=== PATIENT | female | born 1930 | race Caucasian/White ===

== ENCOUNTER 2017-09-06 12:51 | Inpatient (IN) | payer OTHER, MEDICARE ==
[2017-09-06 13:00] VITALS: BMI 19.3
[2017-09-06] MEDS ORDERED: morphine CARPU-JECT 2 MG/1 ML DISP.SYRIN IVPUSH ONE ×2 (14:39→21:44)
--- NOTE | 2017-09-06 14:39 | PDOC ---
History of Present Illness - General Chief Complaint: Pain, Acute Stated Complaint: DISLOCATED HIP Time Seen by Provider: 09/06/17 13:05 History Source: Patient, Family Exam Limitations: No Limitations - History of Present Illness Initial Comments: 09/06/17 14:26 87 year old female with pmh of CAD, HTN , HLD, central positional vertigo, dizziness of unknown cause, balance disorder white matter disease, lesions of missy, ataxic gait frequency of micturation, urgency incontinence , kidney mass who presented to the hospital after she fall from her bed while getting up , she slept and her legs beneath her on the floor, fall was unwitnessed and no loc was reported. she denies hitting her head. she denies any dizziness or vertigo, dizziness or any seizure symptoms. pt report feeling weak last couple days and unsteady more than usual, she has been difficultly pushing her walker. she lost her balance yesterday and fall to the back where daughter behind her and hold her.pt reports loss of appetite X2 days, decreased oral intake , she has been limiting her fluids due to urinary and stool incontinence. she reports multiple loose stool yesterday and feeling of nausea with multiple urination at night. 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 she denies any recent cold or sick contact.denies fever, chills, chest pain , palpitation, denies any burning sensation or urinary symptoms, denies leg swelling. pt lives by her self and completely independent. pt last colonoscopy 2014 unsignificant and no family history for colon cancer. Her PCP is Saurabh wilson [facility] [phone] cell, [phone] office Cardiology Antonio tenorio: [phone]---[phone] cell Pt PSH : right hip replacement 2014, (2009 right hip fixed with rods), cataract B/ L , right ovarian removed 1959, 3 stent and 1 drug elluting. social : she smoke 2 PPD for 50 years , quit 14 years ago. drink alcohol socially, never use any drugs. FH: Haert disease bothe parents , Gi ulcer in her father 09/06/17 14:42 09/06/17 15:16 09/06/17 15:22 A/P differentia : infection (UTI) versus dehydration versus TIA/CVAm vs motor problems(gait or balance, muscle weakness).vs vision problems Stroke protocol initiated Labs, urinalysis, CT head Pelvis, right hip, right femur x-rays Pain control nausea meds CXR EKG neurology consult CBC, CMP UA 09/06/17 16:17 09/06/17 16:56 09/06/17 23:[address] Rivera over the phone from [facility] and he will communicate with o [facility] [phone] primary team tomorrow for possibility of transfer [phone] Past History - Travel Traveled outside of the country in the last 30 days: No Close contact w/someone who was outside of country & ill: No - Past Medical History Allergies/Adverse Reactions: Allergies Allergy/AdvReac Type Severity Reaction Status Date / Time bacitracin Allergy Rash Verified 09/06/17 13:06 benzocaine Allergy Rash Verified 09/06/17 13:06 ezetimibe [From Zetia] Allergy Rash Verified 09/06/17 13:06 gabapentin [From Neurontin] Allergy weakness Verified 09/06/17 13:06 latex Allergy Rash Verified 09/06/17 13:06 lidocaine Allergy severe rash Verified 09/06/17 13:06 Penicillins Allergy Rash Verified 09/06/17 13:06 simvastatin Allergy Rash Verified 09/06/17 13:06 tramadol Allergy fainted Verified 09/06/17 13:06 valsartan [From Diovan] Allergy Rash Verified 09/06/17 13:06 Home Medications: Ambulatory Orders Acetaminophen [Tylenol -] 500 mg PO BID 09/06/17 Amlodipine Besylate [Norvasc -] 2.5 mg PO DAILY 09/06/17 Aspirin [ASA -] 81 mg PO BID 09/06/17 Clindamycin 100 mg PO PRN PRN 09/06/17 Clobetasol Propionate [Temovate] 15 gm TP DAILY 09/06/17 Clopidogrel Bisulfate [Plavix] 75 mg PO DAILY 09/06/17 Cyanocobalamin [Vitamin B12 -] 1,000 mcg PO DAILY 09/06/17 Hydrochlorothiazide 12.5 mg PO PRN PRN 09/06/17 Meclizine HCl 12.5 mg PO PRN PRN 09/06/17 Metoprolol Tartrate 50 mg PO DAILY 09/06/17 Mupirocin Cream [Bactroban 2% Cream -] 1 applic TP DAILY 09/06/17 Nystatin Oral Suspension - [Nystatin Oral Susp 360941 Units/5 ML -] 5 ml PO DAILY 09/06/17 Ranitidine HCl [Zantac] 150 mg PO DAILY 09/06/17 Cancer: Yes (kidney mass) Cardiac Disorders: Yes Hx Myocardial Infarction: Yes (x3 stents ) HTN: Yes Hypercholesterolemia: Yes - Surgical History Cardiac Surgery: Yes (STENTS) Orthopedic Surgery: Yes - Immunization History Td Vaccination: Yes TDAP Vaccination: Yes Immunization Up to Date: Yes - Suicide/Smoking/Psychosocial Hx Smoking Status: Yes Smoking History: Never smoked Years of Tobacco Use: 0 Have you smoked in the past 12 months: No Number of Cigarettes Smoked Daily: 0 Cigars Per Day: 0 Information on smoking cessation initiated: No Hx Alcohol Use: No Drug/Substance Use Hx: No Substance Use Type: None Review of Systems - Review of Systems Able to Perform ROS?: Yes Is the patient limited Dutch proficient: No Constitutional: Yes: Loss of Appetite, Weakness. No: Chills, Diaphoresis, Fever HEENTM: Yes: Double Vision. No: Tinnitus, Throat Pain, Difficulty Swallowing, Mouth Swelling Respiratory: No: Cough, Orthopnea, Shortness of Breath, SOB at Rest, Stridor, Wheezing, Productive cough Cardiac (ROS): Yes: Lightheadedness. No: Chest Pain, Edema, Palpitations, Chest Tightness ABD/GI: Yes: Diarrhea, Nausea, Poor Appetite, Poor Fluid Intake. No: Abdominal Distended, Abd. Pain w/ defecation, Difficulty Swallowing : Yes: Frequency, Incontinence, Urgency. No: Burning, Dysuria, Discharge, Flank Pain, Hematuria Musculoskeletal: Yes: Joint Pain (hip pain right side radiating to right lower leg), Muscle Weakness. No: Back Pain, Neck Pain Integumentary: Yes: Erythema (right hip hematoma ) Psychiatric: Yes: Change in Appetite. No: Emotional Problems, Mood Swings *Physical Exam - Vital Signs Last Vital Signs Temp Pulse Resp BP Pulse Ox 98.1 F 80 16 150/80 100 09/06/17 12:58 09/06/17 12:58 09/06/17 12:58 09/06/17 12:58 09/06/17 12:58 General: laying down in the bed in no acute distress. Head: NC/AT , EOMI, MANUEL, ENT: dry mucous membrane, Neck supple with no JVD, no bruit , Lungs: CTA B/L , no wheezes, no crackles, no accessory muscle use. Heart: NSR, normal S1, S2, no MRG upper ext: warm well perfused , sensation intact, strength 5/5 , +2 brachial pulse., Biceps reflexes +2 Lower Ext: right leg shorter and externally rotated,sensation intact B/L , left leg strength 5/5 , right leg limited ROM due to pain, right hip hematoma. reflexes intact B/L Cranial nerves: CNII-X11 grossly intact, no focal deficit, symmetric face , uvula mid line, psych: cooperative , good eye contact, appropriate mood and effect. 09/06/17 14:57 Heart Score/ECG Review - Electrocardiogram EKG: Non specific repolarization disturbance - Age Age: >/= 65 - Troponin Troponin: >/=3x normal limit (trop I 1.48, trop II 4.2) - [place]: Normal ED Treatment Course - LABORATORY CBC & Chemistry Diagram: 09/06/17 15:01 09/06/17 15:01 - ADDITIONAL ORDERS Additional order review: 09/06/17 23:52 EKG normal sinus rhythm with no St. T wave changes , WI interval 148, QRS 86, QTC 442. karen rate 96. (interpreted by me ). spoken with Dr espinoza over the phone and send him the EKG images. 09/07/17 00:11 - RADIOLOGY Radiology Studies Ordered: Category Date Time Status HEAD CT (STROKE) [CT] Stat CT Scan 09/06/17 14:12 Ordered CHEST X-RAY PORTABLE* [RAD] Stat Radiology 09/06/17 14:16 Ordered HIP & PELVIS-LEFT [RAD] Stat Radiology 09/06/17 13:58 Ordered HIP & PELVIS-RIGHT [RAD] Stat Radiology 09/06/17 14:19 Ordered Chest X-Ray Result: No Infiltrates, Other (cardiomegaly with no acute pathology. ) Radiograph Interpretation: 09/06/17 20:[address] negative for acute pathology Right femoral xray: right femoral fx S/P right hip replacement - Medications Given in the ED: 09/06/17 15:06 Morphine 2 gm iVpush once for hip pain, Zophran IVBP 4 mg for nausea 09/06/17 23:52 Morphine 2 mg IV push Plavix 75 mg po once , ASA 325 mg po once IV NS @ 75 CC/hr *DC/Admit/Observation/Transfer Diagnosis at time of Disposition: NSTEMI (non-ST elevated myocardial infarction), Essential hypertension Femur fracture, right Qualifiers: Encounter type: initial encounter Femur location: shaft Fracture type: closed Fracture morphology: oblique Fracture alignment: nondisplaced Qualified Code(s) : S72.334A - Nondisplaced oblique fracture of shaft of right femur, initial encounter for closed fracture - Referrals - Patient Instructions - Post Discharge Activity
[2017-09-06] MEDS ORDERED: ONDANSETRON 4 MG/2 ML VIAL IVPB ONE (14:40)
[2017-09-06] MEDS: SODIUM CHLORIDE 1,000 ML IV SCH ×2 (15:10→18:57)
[2017-09-06 15:11] LABS: BASO % 0.1 % (0-2.0); HEMATOCRIT 30.7 % (32.4-45.2); LYMPH % 2.5 % (8-40); MCH 30.2 pg (25.7-33.7); MCHC 32.5 g/dl (32.0-36.0); MEAN CELL VOLUME 92.9 fl (80-96); MEAN PLT VOLUME 9.7 fl (7.5-11.1); MONO % 4.9 % (3.8-10.2); NEUT % 92.5 % (42.8-82.8); PLATELET COUNT 235 K/MM3 (134-434); RDW 15.5 % (11.6-15.6); WHITE BLOOD COUNT 14.5 K/mm3 (4.0-10.0)
--- NOTE | 2017-09-06 15:17 | PDOC ---
Attending Attestation - Resident Resident Name: Troy Holder - ED Attending Attestation I have performed the following: I have examined & evaluated the patient, The case was reviewed & discussed with the resident, I agree w/resident's findings & plan, Exceptions are as noted - HPI HPI: 09/06/17 15:12 87-year-old female with history of right hip replacement presents with right leg pain in the setting of fall off of her bed this morning. Over the last 24 hours, patient has had generalized weakness without focal deficit, no infectious or dehydration complaints. In the setting, patient slipped off of her bed this morning and landed on her right leg, has pain to the upper right leg without motor or sensory deficit. No other injuries. - Physicial Exam PE: 09/06/17 15:14 Vital signs normal. Well-appearing seated in stretcher Atraumatic except for right lower extremity: Splints applied by EMS. There is soft tissue swelling and tenderness in the midshaft of the right femur, skin is intact. Neurovascularly intact distally. - Medical Decision Making 09/06/17 15:15 Patient seen and evaluated with the resident. I agree with the overall evaluation, assessment, and management with the following summary of visit: 87-year-old female with right hip replacement presents with fall and right leg/ femur injury, and the setting of one day of generalized weakness. Likely periprosthetic fracture, rule out dislocation. Regarding the etiology of the falls, rule out infection versus dehydration versus TIA/CVA. Stroke protocol initiated Labs, urinalysis, CT head Pelvis, right hip, right femur x-rays Pain control Admission. If fracture, patient and family may request transfer to [facility], where her original orthopedic surgeon is located. 09/06/17 16:49 labs notable for wbc 14, Cr 1.9, elevated Trop. CT head without acute pathology, chronic L basal ganglia infarct. xrays pending, will need admission.
[2017-09-06 15:24] LABS: INR 1.09 (0.82-1.09); PROTHROMBIN TIME (PATIENT) 12.3 SEC (9.98-11.88)
[2017-09-06] MEDS ORDERED: ONDANSETRON 4 MG/2 ML VIAL ONE (15:32)
[2017-09-06] MEDS ORDERED: morphine SULFATE 4 MG/ML VIAL ONE ×2 (15:32→21:51)
[2017-09-06 15:41] LABS: ALBUMIN 3.6 g/dl (3.4-5.0); ANION GAP 10 (8-16); BILIRUBIN,TOTAL 0.6 mg/dL (0.2-1.0); BLOOD UREA NITROGEN 39 mg/dL (7-18); CALCIUM 8.5 mg/dL (8.5-10.1); CHLORIDE 104 mmol/L (98-107); CHOLESTEROL 224 mg/dL (50-200); CO2 21 mmol/L (21-32); CREATININE 1.9 mg/dL (0.55-1.02); GLUCOSE,RANDOM 105 mg/dL (74-106); LDL CHOLESTEROL (ONLY SJRH) 133 mg/dL (5-100); POTASSIUM 4.7 mmol/L (3.5-5.1); SGOT/AST 109 U/L (15-37); SGPT/ALT 53 U/L (12-78); SODIUM 135 mmol/L (136-145); TOT PROT 6.7 g/dl (6.4-8.2); TRIGLYCERIDES 93 mg/dL (35-160)
[2017-09-06 15:53] LABS: ALK PHOS 102 U/L (45-117); HDL CHOLESTEROL 68 mg/dL (40-60)
--- NOTE | 2017-09-06 16:30 | CON.NEURO ---
Consult - History of Present Illness History of Present Illness: 87-year-old female with history of right hip replacement presents with right leg pain in the setting of fall off of her bed this morning. Over the last 24 hours, patient has had generalized weakness without focal deficit, no infectious or dehydration complaints. seen by ortho for R femoral fracture which necessitates surgery. CT HD prelim : moderate periventricular white matter changes, no acute stroke Echocardiography revealed normal systolic LV function with LVEF of 70-75%, AV sclerosis, dense MAC, trace to mild MR - History Source History Provided By: Patient, Medical Record - Alcohol/Substance Use Hx Alcohol Use: No - Smoking History Smoking history: Never smoked Have you smoked in the past 12 months: No Aproximately how many cigarettes per day: 0 Home Medications - Allergies Allergies/Adverse Reactions: Allergies Allergy/AdvReac Type Severity Reaction Status Date / Time bacitracin Allergy Rash Verified 09/06/17 13:06 benzocaine Allergy Rash Verified 09/06/17 13:06 ezetimibe [From Zetia] Allergy Rash Verified 09/06/17 13:06 gabapentin [From Neurontin] Allergy weakness Verified 09/06/17 13:06 latex Allergy Rash Verified 09/06/17 13:06 lidocaine Allergy severe rash Verified 09/06/17 13:06 Penicillins Allergy Rash Verified 09/06/17 13:06 simvastatin Allergy Rash Verified 09/06/17 13:06 tramadol Allergy fainted Verified 09/06/17 13:06 valsartan [From Diovan] Allergy Rash Verified 09/06/17 13:06 - Home Medications Home Medications: Ambulatory Orders Acetaminophen [Tylenol -] 500 mg PO BID 09/06/17 Amlodipine Besylate [Norvasc -] 2.5 mg PO DAILY 09/06/17 Aspirin [ASA -] 81 mg PO BID 09/06/17 Clindamycin 100 mg PO PRN PRN 09/06/17 Clobetasol Propionate [Temovate] 15 gm TP DAILY 09/06/17 Clopidogrel Bisulfate [Plavix] 75 mg PO DAILY 09/06/17 Cyanocobalamin [Vitamin B12 -] 1,000 mcg PO DAILY 09/06/17 Hydrochlorothiazide 12.5 mg PO PRN PRN 09/06/17 Meclizine HCl 12.5 mg PO PRN PRN 09/06/17 Metoprolol Tartrate 50 mg PO DAILY 09/06/17 Mupirocin Cream [Bactroban 2% Cream -] 1 applic TP DAILY 09/06/17 Nystatin Oral Suspension - [Nystatin Oral Susp 246582 Units/5 ML -] 5 ml PO DAILY 09/06/17 Ranitidine HCl [Zantac] 150 mg PO DAILY 09/06/17 Physical Exam-Neuro Vital Signs: Vital Signs Temperature 98.1 F 09/06/17 12:58 Pulse Rate 80 09/06/17 12:58 Respiratory Rate 16 09/06/17 12:58 Blood Pressure 150/80 09/06/17 12:58 O2 Sat by Pulse Oximetry (%) 100 09/06/17 12:58 Constitutional: Yes: Well Nourished, No Distress Labs: CBC, BMP 09/06/17 15:01 09/06/17 15:01 INR, PTT INR 1.09 (0.82-1.09) 09/06/17 15:01 - Neuro Exam Level Of Consciousness: Yes: Alert, Oriented to Person (awake, alert, EOMI, no facila, unable to move RLE, UE 5/5, unable to walk ) Problem List - Problems (1) Essential hypertension Code(s): I10 - ESSENTIAL (PRIMARY) HYPERTENSION (2) Femur fracture, right Code(s): S72.91XA - UNSP FRACTURE OF RIGHT FEMUR, INIT FOR CLOS FX Qualifiers: Encounter type: initial encounter Femur location: shaft Fracture type: closed Fracture morphology: oblique Fracture alignment: nondisplaced Qualified Code(s): S72.334A - Nondisplaced oblique fracture of shaft of right femur, initial encounter for closed fracture (3) HTN (hypertension) Code(s): I10 - ESSENTIAL (PRIMARY) HYPERTENSION Assessment/Plan s/p fall with R femur FX--no evidence of stroke, gait issues stem form orthopedic pathology if requires surgery, reasonable to check caroitd Doppler to better ascertain surgical risks also awaits cardiac clearence Dr Brooks
--- NOTE | 2017-09-06 18:34 | PDOC ---
*Physical Exam - Vital Signs Last Vital Signs Temp Pulse Resp BP Pulse Ox 98.1 F 92 H 16 150/80 100 09/06/17 12:58 09/06/17 14:12 09/06/17 12:58 09/06/17 12:58 09/06/17 14:12 <ViniciusKetty Nhung - Last Filed: 09/06/17 21:13> - Vital Signs Last Vital Signs Temp Pulse Resp BP Pulse Ox 98.1 F 92 H 16 150/80 100 09/06/17 12:58 09/06/17 14:12 09/06/17 12:58 09/06/17 12:58 09/06/17 14:12 <Pham Haile - Last Filed: 09/06/17 22:43> ED Treatment Course - LABORATORY CBC & Chemistry Diagram: 09/06/17 15:01 09/06/17 15:01 - ADDITIONAL ORDERS Additional order review: Laboratory Results 09/06/17 09/06/17 09/06/17 15:41 15:01 15:01 PT with INR INR PTT (Actin FS) 27.8 Sodium 135 L Potassium 4.7 Chloride 104 Carbon Dioxide 21 Anion Gap 10 BUN 39 H Creatinine 1.9 H Creat Clearance w eGFR 24.95 Random Glucose 105 Calcium 8.5 Total Bilirubin 0.6 D AST 109 H ALT 53 Alkaline Phosphatase 102 Creatine Kinase 1823 H Creatine Kinase Index 2.0 CK-MB (CK-2) 37.146 H Troponin I 1.48 H* Total Protein 6.7 Albumin 3.6 Triglycerides 93 Cholesterol 224 H Total LDL Cholesterol 133 H HDL Cholesterol 68 H Blood Type O POSITIVE Antibody Screen Negative 09/06/17 15:01 PT with INR 12.30 H INR 1.09 PTT (Actin FS) Sodium Potassium Chloride Carbon Dioxide Anion Gap BUN Creatinine Creat Clearance w eGFR Random Glucose Calcium Total Bilirubin AST ALT Alkaline Phosphatase Creatine Kinase Creatine Kinase Index CK-MB (CK-2) Troponin I Total Protein Albumin Triglycerides Cholesterol Total LDL Cholesterol HDL Cholesterol Blood Type Antibody Screen 09/06/17 15:01 RBC 3.30 L MCV 92.9 MCHC 32.5 RDW 15.5 MPV 9.7 D Neutrophils % 92.5 H Lymphocytes % 2.5 L D Monocytes % 4.9 Eosinophils % 0.0 D Basophils % 0.1 - RADIOLOGY Chest X-Ray Result: No Infiltrates, Other (cardiomegaly with no acute pathology. ) - Medications Given in the ED: ED Medications Discontinued Medications Generic Name Dose Route Start Last Admin Trade Name Freq PRN Reason Stop Dose Admin Morphine Sulfate 2 mg 09/06/17 14:39 09/06/17 15:39 Morphine Injection - IVPUSH 09/06/17 14:40 2 mg ONCE ONE Administration Ondansetron HCl 4 mg 09/06/17 14:40 09/06/17 15:39 Zofran Injection IVPB 09/06/17 14:41 4 mg ONCE ONE Administration <Ketty Colvin - Last Filed: 09/06/17 21:13> - LABORATORY CBC & Chemistry Diagram: 09/06/17 15:01 09/06/17 15:01 - ADDITIONAL ORDERS Additional order review: Laboratory Results 09/06/17 09/06/17 09/06/17 15:41 15:01 15:01 PT with INR INR PTT (Actin FS) 27.8 Sodium 135 L Potassium 4.7 Chloride 104 Carbon Dioxide 21 Anion Gap 10 BUN 39 H Creatinine 1.9 H Creat Clearance w eGFR 24.95 Random Glucose 105 Calcium 8.5 Total Bilirubin 0.6 D AST 109 H ALT 53 Alkaline Phosphatase 102 Creatine Kinase 1823 H Creatine Kinase Index 2.0 CK-MB (CK-2) 37.146 H Troponin I 1.48 H* Total Protein 6.7 Albumin 3.6 Triglycerides 93 Cholesterol 224 H Total LDL Cholesterol 133 H HDL Cholesterol 68 H Blood Type O POSITIVE Antibody Screen Negative 09/06/17 15:01 PT with INR 12.30 H INR 1.09 PTT (Actin FS) Sodium Potassium Chloride Carbon Dioxide Anion Gap BUN Creatinine Creat Clearance w eGFR Random Glucose Calcium Total Bilirubin AST ALT Alkaline Phosphatase Creatine Kinase Creatine Kinase Index CK-MB (CK-2) Troponin I Total Protein Albumin Triglycerides Cholesterol Total LDL Cholesterol HDL Cholesterol Blood Type Antibody Screen 09/06/17 15:01 RBC 3.30 L MCV 92.9 MCHC 32.5 RDW 15.5 MPV 9.7 D Neutrophils % 92.5 H Lymphocytes % 2.5 L D Monocytes % 4.9 Eosinophils % 0.0 D Basophils % 0.1 - Medications Given in the ED: ED Medications Discontinued Medications Generic Name Dose Route Start Last Admin Trade Name Freq PRN Reason Stop Dose Admin Morphine Sulfate 2 mg 09/06/17 14:39 09/06/17 15:39 Morphine Injection - IVPUSH 09/06/17 14:40 2 mg ONCE ONE Administration Ondansetron HCl 4 mg 09/06/17 14:40 09/06/17 15:39 Zofran Injection IVPB 09/06/17 14:41 4 mg ONCE ONE Administration <Pham Haile - Last Filed: 09/06/17 22:43> Medical Decision Making - Medical Decision Making 09/06/17 20:18 Dr. Rivera at [facility] paged. Awaiting call back. 09/06/17 20:50 Paged Ortho autotransfusionist-- Dr. Santiago. Awaiting call back. 09/06/17 20:50 Awaiting call back from Dr. Rivera @ . 09/06/17 21:15 Paged Ortho autotransfusionist-- Dr. Santiago. Awaiting call back. 09/06/17 22:30 Jack returned the page and the patients case was discussed. <Pham Haile - Last Filed: 09/06/17 22:43> *DC/Admit/Observation/Transfer - Discharge Dispostion Admit: Yes <Ketty Colvin - Last Filed: 09/06/17 21:13> - Attestations Scribe Attestion: 09/06/17 20:19 Documentation prepared by Pham Haile, acting as medical center director for Osorio De MD <Pham Haile - Last Filed: 09/06/17 22:43> Diagnosis at time of Disposition: NSTEMI (non-ST elevated myocardial infarction), Essential hypertension Femur fracture, right Qualifiers: Encounter type: initial encounter Femur location: shaft Fracture type: closed Fracture morphology: oblique Fracture alignment: nondisplaced Qualified Code(s) : S72.334A - Nondisplaced oblique fracture of shaft of right femur, initial encounter for closed fracture
[2017-09-06] MEDS ORDERED: ASPIRIN 325 MG TABLET PO ONE (20:36)
[2017-09-06] MEDS ORDERED: ASPIRIN 325 MG ENTERIC COATED TABLET (FP) ONE (20:44)
[2017-09-06 20:52] LABS: URINE APPEARANCE CLEAR; URINE BILIRUBIN NEGATIVE (NEGATIVE); URINE BLOOD 2+ (NEGATIVE); URINE COLOR LTYELLOW; URINE GLUCOSE (UA) NEGATIVE (NEGATIVE); URINE KETONE TRACE (NEGATIVE); URINE NITRITE NEGATIVE (NEGATIVE); URINE UROBILINOGEN NEGATIVE mg/dL (0.2-1.0)
[2017-09-06 20:56] LABS: URINE LEUK ESTERASE 2+ (NEGATIVE); URINE PROTEIN 2+ (NEGATIVE)
[2017-09-06 20:57] LABS: EPI CELLS RARE /HPF (FEW); URINE BACTERIA RARE /hpf (NONE SEEN); URINE MUCUS RARE
[2017-09-06] MEDS ORDERED: CLOPIDOGREL BISULFATE 75 MG TABLET (FP) PO ONE (21:08)
[2017-09-06] MEDS ORDERED: ENOXAPARIN NA (PORCINE) 60 MG/0.6 ML DISP.SYRIN SQ ONE ×2 (22:30→23:26)
[2017-09-06] MEDS ORDERED: ENOXAPARIN NA (PORCINE) 60 MG/0.6 ML DISP.SYRIN SQ SCH (22:30)
--- NOTE | 2017-09-06 22:56 | HP ---
Admitting History and Physical - Primary Care Physician PCP: Kiran Ramirez - Admission Chief Complaint: fall History of Present Illness: 87 year old female with pmh of CAD, HTN , HLD, central positional vertigo, dizziness of unknown cause, balance disorder white matter disease, lesions of missy, ataxic gait frequency of micturation, urgency incontinence , kidney mass who presented to the hospital after she fall from her bed while getting up , she slept and her legs beneath her on the floor, fall was unwitnessed and no loc was reported. she denies hitting her head. she denies any dizziness or vertigo, dizziness or any seizure symptoms. pt report feeling weak last couple days and unsteady more than usual, she has been difficultly pushing her walker. she lost her balance yesterday and fall to the back where daughter behind her and hold her.pt reports loss of appetite X2 days, decreased oral intake , she has been limiting her fluids due to urinary and stool incontinence. she reports multiple loose stool yesterday and feeling of nausea with multiple urination at night. 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 she denies any recent cold or sick contact.denies fever, chills, chest pain , palpitation, denies any burning sensation or urinary symptoms, denies leg swelling. pt lives by her self and completely independent. pt last colonoscopy 2014 unsignificant and no family history for colon cancer. Her PCP is Saurabh Luna in [facility] [phone] cell, [phone] office history taken from ER records - Past Medical History Cardiovascular: Yes: HTN, Hyperlipdemia - Smoking History Smoking history: Never smoked Have you smoked in the past 12 months: No Aproximately how many cigarettes per day: 0 - Alcohol/Substance Use Hx Alcohol Use: No Home Medications - Allergies Allergies/Adverse Reactions: Allergies Allergy/AdvReac Type Severity Reaction Status Date / Time bacitracin Allergy Rash Verified 09/06/17 13:06 benzocaine Allergy Rash Verified 09/06/17 13:06 ezetimibe [From Zetia] Allergy Rash Verified 09/06/17 13:06 gabapentin [From Neurontin] Allergy weakness Verified 09/06/17 13:06 latex Allergy Rash Verified 09/06/17 13:06 lidocaine Allergy severe rash Verified 09/06/17 13:06 Penicillins Allergy Rash Verified 09/06/17 13:06 simvastatin Allergy Rash Verified 09/06/17 13:06 tramadol Allergy fainted Verified 09/06/17 13:06 valsartan [From Diovan] Allergy Rash Verified 09/06/17 13:06 - Home Medications Home Medications: Ambulatory Orders Acetaminophen [Tylenol -] 500 mg PO BID 09/06/17 Amlodipine Besylate [Norvasc -] 2.5 mg PO DAILY 09/06/17 Aspirin [ASA -] 81 mg PO BID 09/06/17 Clindamycin 100 mg PO PRN PRN 09/06/17 Clobetasol Propionate [Temovate] 15 gm TP DAILY 09/06/17 Clopidogrel Bisulfate [Plavix] 75 mg PO DAILY 09/06/17 Cyanocobalamin [Vitamin B12 -] 1,000 mcg PO DAILY 09/06/17 Hydrochlorothiazide 12.5 mg PO PRN PRN 09/06/17 Meclizine HCl 12.5 mg PO PRN PRN 09/06/17 Metoprolol Tartrate 50 mg PO DAILY 09/06/17 Mupirocin Cream [Bactroban 2% Cream -] 1 applic TP DAILY 09/06/17 Nystatin Oral Suspension - [Nystatin Oral Susp 421361 Units/5 ML -] 5 ml PO DAILY 09/06/17 Ranitidine HCl [Zantac] 150 mg PO DAILY 09/06/17 Physical Examination Vital Signs: Vital Signs Temperature 98.1 F 09/06/17 12:58 Pulse Rate 92 H 09/06/17 14:12 Respiratory Rate 16 09/06/17 12:58 Blood Pressure 150/80 09/06/17 12:58 O2 Sat by Pulse Oximetry (%) 100 09/06/17 14:12 Constitutional: Yes: No Distress HENT: Yes: Atraumatic Neck: Yes: Supple Cardiovascular: Yes: Regular Rate and Rhythm Respiratory: Yes: CTA Bilaterally Gastrointestinal: Yes: Normal Bowel Sounds Extremities: Yes: WNL Edema: LLE: Trace, RLE: Trace Peripheral Pulses WNL: Yes Neurological: Yes: Alert Labs: CBC, BMP 09/06/17 15:01 09/06/17 15:01 Imaging - Results Cat Scan: Report Reviewed Problem List - Problems (1) Essential hypertension Assessment/Plan: on meds stable Code(s): I10 - ESSENTIAL (PRIMARY) HYPERTENSION (2) Femur fracture, right Assessment/Plan: surgery consult prn pain meds physical therapy request Code(s): S72.91XA - UNSP FRACTURE OF RIGHT FEMUR, INIT FOR CLOS FX Qualifiers: Encounter type: initial encounter Femur location: shaft Fracture type: closed Fracture morphology: oblique Fracture alignment: nondisplaced Qualified Code(s): S72.334A - Nondisplaced oblique fracture of shaft of right femur, initial encounter for closed fracture (3) NSTEMI (non-ST elevated myocardial infarction) Assessment/Plan: will follow troponins cardiology on case tele monitoring Code(s): I21.4 - NON-ST ELEVATION (NSTEMI) MYOCARDIAL INFARCTION (4) HTN (hypertension) Code(s): I10 - ESSENTIAL (PRIMARY) HYPERTENSION Assessment/Plan Laboratory Tests 09/06/17 09/06/17 09/06/17 15:01 15:01 15:01 WBC 14.5 H RBC 3.30 L Hgb 10.0 L Hct 30.7 L MCV 92.9 MCH 30.2 MCHC 32.5 RDW 15.5 Plt Count 235 D MPV 9.7 D Neutrophils % 92.5 H Lymphocytes % 2.5 L D Monocytes % 4.9 Eosinophils % 0.0 D Basophils % 0.1 PT with INR 12.30 H INR 1.09 PTT (Actin FS) Sodium 135 L Potassium 4.7 Chloride 104 Carbon Dioxide 21 Anion Gap 10 BUN 39 H Creatinine 1.9 H Creat Clearance w eGFR 24.95 Random Glucose 105 Calcium 8.5 Total Bilirubin 0.6 D AST 109 H ALT 53 Alkaline Phosphatase 102 Creatine Kinase 1823 H Creatine Kinase Index 2.0 CK-MB (CK-2) 37.146 H Troponin I 1.48 H* Total Protein 6.7 Albumin 3.6 Triglycerides 93 Cholesterol 224 H Total LDL Cholesterol 133 H HDL Cholesterol 68 H Urine Color Urine Appearance Urine pH Ur Specific [place] Urine Protein Urine Glucose (UA) Urine Ketones Urine Blood Urine Nitrite Urine Bilirubin Urine Urobilinogen Ur Leukocyte Esterase Urine WBC (Auto) Urine RBC (Auto) Ur Epithelial Cells Urine Bacteria Urine Mucus Blood Type Antibody Screen 09/06/17 09/06/17 09/06/17 15:01 15:41 19:16 WBC RBC Hgb Hct MCV MCH MCHC RDW Plt Count MPV Neutrophils % Lymphocytes % Monocytes % Eosinophils % Basophils % PT with INR INR PTT (Actin FS) 27.8 Sodium Potassium Chloride Carbon Dioxide Anion Gap BUN Creatinine Creat Clearance w eGFR Random Glucose Calcium Total Bilirubin AST ALT Alkaline Phosphatase Creatine Kinase 2064 H Creatine Kinase Index 1.7 CK-MB (CK-2) 36.721 H Troponin I 4.02 H* Total Protein Albumin Triglycerides Cholesterol Total LDL Cholesterol HDL Cholesterol Urine Color Urine Appearance Urine pH Ur Specific [place] Urine Protein Urine Glucose (UA) Urine Ketones Urine Blood Urine Nitrite Urine Bilirubin Urine Urobilinogen Ur Leukocyte Esterase Urine WBC (Auto) Urine RBC (Auto) Ur Epithelial Cells Urine Bacteria Urine Mucus Blood Type O POSITIVE Antibody Screen Negative 09/06/17 20:24 WBC RBC Hgb Hct MCV MCH MCHC RDW Plt Count MPV Neutrophils % Lymphocytes % Monocytes % Eosinophils % Basophils % PT with INR INR PTT (Actin FS) Sodium Potassium Chloride Carbon Dioxide Anion Gap BUN Creatinine Creat Clearance w eGFR Random Glucose Calcium Total Bilirubin AST ALT Alkaline Phosphatase Creatine Kinase Creatine Kinase Index CK-MB (CK-2) Troponin I Total Protein Albumin Triglycerides Cholesterol Total LDL Cholesterol HDL Cholesterol Urine Color Ltyellow Urine Appearance Clear Urine pH 6.0 Ur Specific [place] 1.018 Urine Protein 2+ H Urine Glucose (UA) Negative Urine Ketones Trace H Urine Blood 2+ H Urine Nitrite Negative Urine Bilirubin Negative Urine Urobilinogen Negative Ur Leukocyte Esterase 2+ H Urine WBC (Auto) 8 Urine RBC (Auto) 2 Ur Epithelial Cells Rare Urine Bacteria Rare Urine Mucus Rare Blood Type Antibody Screen Active Medications Generic Name Dose Route Start Last Admin Trade Name Freq PRN Reason Stop Dose Admin Enoxaparin Sodium 60 mg 09/06/17 22:30 Lovenox - SQ ONCE BEE Sodium Chloride 1,000 mls @ 42 mls/hr 09/06/17 14:15 09/06/17 15:10 Normal Saline - IV 42 mls/hr ASDIR BEE Administration Sodium Chloride 1,000 mls @ 75 mls/hr 09/06/17 18:30 09/06/17 18:57 Normal Saline - IV 75 mls/hr ASDIR BEE Administration Active Medications Generic Name Dose Route Start Last Admin Trade Name Freq PRN Reason Stop Dose Admin Acetaminophen 650 mg 09/07/17 11:00 09/07/17 11:55 Tylenol - PO 650 mg Q6H PRN Administration PAIN SCALE 1-5 Amlodipine Besylate 2.5 mg 09/07/17 18:45 Norvasc - PO DAILY [facility] Aspirin 81 mg 09/07/17 22:00 Asa - PO BID [facility] Clopidogrel Bisulfate 75 mg 09/08/17 10:00 Plavix - PO DAILY [facility] Enoxaparin Sodium 50 mg 09/07/17 10:00 09/07/17 09:07 Lovenox - SQ 50 mg DAILY BEE Administration Sodium Chloride 1,000 mls @ 42 mls/hr 09/06/17 14:15 09/07/17 15:37 Normal Saline - IV 42 mls/hr ASDIR BEE Administration Sodium Chloride 1,000 mls @ 75 mls/hr 09/06/17 18:30 09/06/17 18:57 Normal Saline - IV 75 mls/hr ASDIR BEE Administration Metoprolol Tartrate 50 mg 09/07/17 18:45 Lopressor - PO DAILY [facility] Morphine Sulfate 2 mg 09/06/17 22:58 09/07/17 01:30 Morphine Sulfate IVPUSH 2 mg Q4H PRN Administration PAIN LEVEL 4 - 6
[2017-09-06] MEDS ORDERED: morphine SULFATE 4 MG/ML VIAL IVPUSH PRN (22:58)
[2017-09-06] MEDS ORDERED: CLOPIDOGREL BISULFATE 75 MG TABLET (FP) ONE (23:26)
[2017-09-07 07:16] LABS: BASO % 0.8 % (0-2.0); EOS % 0.2 % (0-4.5); HEMATOCRIT 24.7 % (32.4-45.2); HEMOGLOBIN 8.2 GM/dL (10.7-15.3); LYMPH % 9.3 % (8-40); MCH 30.5 pg (25.7-33.7); MEAN CELL VOLUME 92.4 fl (80-96); MONO % 8.9 % (3.8-10.2); NEUT % 80.8 % (42.8-82.8); PLATELET COUNT 192 K/MM3 (134-434); RBC 2.68 M/mm3 (3.60-5.2); RDW 15.5 % (11.6-15.6); WHITE BLOOD COUNT 9.9 K/mm3 (4.0-10.0)
[2017-09-07 08:10] LABS: ALBUMIN 2.8 g/dl (3.4-5.0); ANION GAP 10 (8-16); BLOOD UREA NITROGEN 44 mg/dL (7-18); CALCIUM 7.4 mg/dL (8.5-10.1); CHLORIDE 108 mmol/L (98-107); CO2 22 mmol/L (21-32); GLUCOSE,RANDOM 79 mg/dL (74-106); POTASSIUM 4.9 mmol/L (3.5-5.1); SODIUM 140 mmol/L (136-145)
[2017-09-07 08:15] LABS: ALK PHOS 75 U/L (45-117); BILIRUBIN,TOTAL 0.4 mg/dL (0.2-1.0); CREATININE 1.9 mg/dL (0.55-1.02); SGOT/AST 109 U/L (15-37); SGPT/ALT 55 U/L (12-78); TOT PROT 5.2 g/dl (6.4-8.2)
[2017-09-07] MEDS: ENOXAPARIN NA (PORCINE) 60 MG/0.6 ML DISP.SYRIN SQ SCH (09:07)
[2017-09-07] MEDS: ACETAMINOPHEN 325 MG TABLET (FP) PO PRN (11:55)
--- NOTE | 2017-09-07 12:17 | EKG ---
Test Reason : Blood Pressure : / mmHG Vent. Rate : 096 BPM Atrial Rate : 096 BPM P-R Int : 148 ms QRS Dur : 086 ms QT Int : 350 ms P-R-T Axes : 049 028 048 degrees QTc Int : 442 ms NORMAL SINUS RHYTHM NORMAL ECG WHEN COMPARED WITH ECG OF 06-SEP-2017 17:46, NO SIGNIFICANT CHANGE WAS FOUND Confirmed by MD DANIELLE, JAQUAN ([id number]) on 09/07/2017 12:17:30 PM Referred By: Confirmed By:JAQUAN SANTOS MD
--- NOTE | 2017-09-07 12:19 | EKG ---
Test Reason : Blood Pressure : / mmHG Vent. Rate : 098 BPM Atrial Rate : 098 BPM P-R Int : 156 ms QRS Dur : 080 ms QT Int : 356 ms P-R-T Axes : 057 035 065 degrees QTc Int : 454 ms NORMAL SINUS RHYTHM NORMAL ECG WHEN COMPARED WITH ECG OF 21-APR-2013 08:27, NO SIGNIFICANT CHANGE WAS FOUND Confirmed by MD DANIELLE, JAQUAN ([id number]) on 09/07/2017 12:18:45 PM Referred By: Confirmed By:JAQUAN SANTOS MD
--- NOTE | 2017-09-07 14:51 | PN ---
Progress Note (short form) - Note Progress Note: Chief Complaint: Events noted, notes reviewed, denies any chest pain or dyspnea , traumatic right femur fracture History of Present Illness: Seen and examined on telemetry. Full consult dictated Echocardiography today revealed normal systolic LV function with LVEF of 70-75% , AV sclerosis, dense MAC, trace to mild MR Dobutamine stress echocardiography dated 04/02/2017 revealed normal augmentation of all myocardial segments, resting LVEF of 75%, peak Dobutamine infusion LVEF was 90%, there was systolic left ventricular cavity obliteration with late systolic intra-cavitary gradient of 75 mmHg (Hypertrophic cardiomyopathy of the elderly) Medications: Current Medications Acetaminophen (Tylenol -) 650 mg PO Q6H PRN PRN Reason: PAIN SCALE 1-5 Last Admin: 09/07/17 11:55 Dose: 650 mg Enoxaparin Sodium (Lovenox -) 50 mg SQ DAILY [facility] Last Admin: 09/07/17 09:07 Dose: 50 mg Sodium Chloride (Normal Saline -) 1,000 mls @ 42 mls/hr IV ASDIR [facility] Last Admin: 09/06/17 15:10 Dose: 42 mls/hr Sodium Chloride (Normal Saline -) 1,000 mls @ 75 mls/hr IV ASDIR [facility] Last Admin: 09/06/17 18:57 Dose: 75 mls/hr Morphine Sulfate (Morphine Sulfate) 2 mg IVPUSH Q4H PRN PRN Reason: PAIN LEVEL 4 - 6 Last Admin: 09/07/17 01:30 Dose: 2 mg Review of Systems Cardiovascular: As noted above Respiratory: denies: Cough or Sputum Production Gastrointestinal: denies: Nausea, Vomiting, Diarrhea, Constipation or Abdominal Discomfort Musculoskeletal: No Symptoms Reported Endocrine: No Symptoms Reported Vital Signs: Last Vital Signs Temp Pulse Resp BP Pulse Ox 97.1 F L 94 H 20 106/60 93 L 09/07/17 06:00 09/07/17 06:00 09/07/17 06:00 09/07/17 06:00 09/07/17 09:00 Intake & Output 09/04/17 09/05/17 09/06/17 09/07/17 22:59 23:59 23:59 23:59 Intake Total 625 Output Total 300 Balance 325 Weight 109 lb 109 lb Constitutional: No Distress, Calm, Thin Neck: Supple Negative JVD No Bruit Respiratory: Clear to A&P Cardiovascular: S1 S2 Regular Rate Rhythm Grade 2/6 RAY Gastrointestinal: Soft Benign Normal Bowel Sounds Ext: negative Edema Labs: Troponin, BNP 09/06/17 09/06/17 09/07/17 15:01 19:16 00:34 Troponin I 1.48 H* 4.02 H* 6.33 H* CBC, BMP 09/07/17 06:27 09/07/17 06:27 Hepatic Panel Total Bilirubin 0.4 mg/dL (0.2-1.0) D 09/07/17 06:27 AST 109 U/L (15-37) H 09/07/17 06:27 ALT 55 U/L (12-78) 09/07/17 06:27 Alkaline Phosphatase 75 U/L (45-117) 09/07/17 06:27 Albumin 2.8 g/dl (3.4-5.0) L 09/07/17 06:27 INR, PTT INR 1.09 (0.82-1.09) 09/06/17 15:01 Assessment/Plan ASSESSMENT: 1. Traumatic right femur fracture, for possible surgical intervention 2. CAD post PCI/stent angina pectoris with evidence of demand ischemic injury/ non-ST segment elevation myocardial infarction, Troponin I trending up as noted 3. Diastolic LV dysfunction with class 0 NYHA classification LV failure, hypertrophic cardiomyopathy of the elderly 4. Hypertension 5. Hypercholesterolemia currently on no statin therapy 6. Chronic kidney disease 7. History of total hip arthroplasty 8. Anemia PLAN: 1. Reinitiate beta arturo therapy, Lopressor 2. Reinitiate Ecotrin therapy and if surgical intervention is planned for the above-noted femoral fracture, Ecotrin therapy to be continued patricio-procedurally unless it is absolutely contraindicated 3. Ideally statin therapy initiation is recommended but patient currently is reluctant to initiate therapy related to prior reported side effects to statin therapy administration 4. Serial Tropinin I to document down trend 5. Patient and her daughter who was contacted via telephone were advised that there are no absolute contraindications in proceeding with the above-noted orthopedic procedure if deemed necessary, although patient is at increased cardiovascular risk considering the above-noted evidence of acute coronary syndrome (No clinical evidence of decompensated congestive heart failure and/or malignant sustained ventricular arrhythmia), additionally if the above-noted orthopedic procedure is planned it should be performed in an institution with full access to an interventional cardiac catheterization lab, patient preference to be transferred to [facility] Veronique Mondragon
[2017-09-07] MEDS: SODIUM CHLORIDE 1,000 ML IV SCH ×2 (15:37→19:04)
--- NOTE | 2017-09-07 16:09 | PN ---
Progress Note (short form) - Note Progress Note: Pt seen and examined. She is an 87 year old F s/p right THR by Dr Zelaya at [facility]. She fell 1 day ago, was unable to ambulate bc of pain in the right hip and thigh. PE RLE is not shortened or rotated +tender over right hip and proximal thigh RLE grossly NVI Good ROM at the right ankle, foot, toes Xrays Show a right femur periprosthetic fracture The prosthesis look to be well fixed in the proximal fragment Only mildly shortened and angulated Imp 87 F with a right femur periprosthetic fracture Rec Pt needs surgery. We offered that to her. She wants to be transfered to [facility] for treatment, to Dr Rivera
--- NOTE | 2017-09-07 16:21 | CONS ---
DATE OF CONSULTATION: 09/07/2017 REQUESTING PHYSICIAN: Kiran Ramirez MD CHIEF COMPLAINT: Fall, fracture of femur, cardiovascular evaluation, elevated troponin-I level. HISTORY OF PRESENT ILLNESS: An 87-year-old female with known history of coronary artery disease status post percutaneous coronary intervention, stenting in 2008, proximal RCA intervention, residual severe stenosis of the first posterolateral branch and moderate multi-vessel residual disease; diastolic left ventricular dysfunction with chronic class 0 [place] [employer] classification left ventricular failure; hypertensive cardiovascular disease; hypercholesterolemia, currently on no statin therapy related to statin therapy administration intolerance; post total hip arthroplasty; chronic kidney disease; renal mass; urinary incontinence; who presented to [facility] with progressive weakness and after sustaining a fall at home. Upon evaluation in the emergency room, patient was noted to have evidence of femoral fracture for which surgical intervention is being considered. Patient reported weakness prior to the above-noted presentation but did not report any dizziness, lightheadedness, or syncope. Patient states that she fell off the bed. Patient has been reporting stable angina pectoris which is predominantly reported with [id number] physical exertion. Patient reports dyspnea with [id number] physical exertion. Patient denies any orthopnea, paroxysmal nocturnal dyspnea, or peripheral edema. Patient denies any palpitations. Patient's real property evaluator, Dr. Gavin Dudley, was contacted, and additional information was obtained including report of dobutamine stress echocardiography which was performed April 02, 2017, which revealed resting left ventricular ejection fraction of 75%. Peak dobutamine ejection fraction was 90%, and there was no stress-induced wall motion abnormality. Stress echo was negative for myocardial ischemia. At peak dobutamine infusion, there was systolic left ventricular cavity obliteration with late systolic intracavitary gradient of 75 mmHg. Above was reported at 20 mcg/kg per minute of dobutamine infusion at a heart rate of 131 beats per minute. Patient was scheduled in the near future for bladder neurostimulator implantation for management of the above-noted urinary incontinence. 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 SOCIAL HISTORY: Nonsmoker. Retired registered nurse. FAMILY HISTORY: Positive for coronary artery disease. ALLERGIES: MULTIPLE LISTED IN THE CHART. REVIEW OF SYSTEMS: Head and Neck: Denies headache, photophobia, blurring of vision. Respiratory: No cough or sputum production. Cardiovascular: As noted above. Gastrointestinal: Denied nausea, vomiting, diarrhea, abdominal discomfort. Genitourinary: Urinary frequency. Musculoskeletal: History of degenerative joint disease. PHYSICAL EXAMINATION: Vital Signs: Blood pressure is 106/60 mmHg. Pulse rate is 94 beats per minute, regular. Head and Neck: Pupils equal and reactive to light and accommodation. Extraocular muscles are intact. Anicteric sclerae. Negative JVD. No bruit appreciated. Chest: Clear to auscultation and percussion. Cardiovascular: S1 and S2 regular. Grade 2/6 systolic ejection murmur. No clicks or gallops. Abdomen: Soft, benign. Normoactive bowel sounds. Extremities: Negative edema. Distal pulses 1+. No calf tenderness. DIAGNOSTIC DATA: Electrocardiogram revealed sinus rhythm with nonspecific T-wave abnormality. Chest x-ray report was noted. CBC revealed white cell count 9.9, hemoglobin 8.2, platelet count of 192. INR 1.09. Basic metabolic profile revealed a sodium 140, potassium 4.9, BUN 44, creatinine 1.9, glucose 79. Initial troponin-I was 1.48, second troponin-I was 4.02, and third troponin-I was 6.33. Cholesterol 224, LDL 133, HDL 68, triglyceride 93 with normal liver profile. ASSESSMENT: 1. Traumatic right femoral fracture for possible surgical intervention. 2. Coronary artery disease post percutaneous coronary intervention, stenting, angina pectoris with evidence of demand ischemic injury, [id number]-elevation myocardial infarction. Troponin-I trending up as noted. 3. Diastolic left ventricular dysfunction with class 0 [place] [employer] classification left ventricular failure, hypertrophic cardiomyopathy of the elderly, asymptomatic. 4. Hypertension. 5. Hypercholesterolemia, currently on no statin therapy, related to statin therapy administration. 6. Chronic kidney disease. 7. History of total hip arthroplasty. 8. Anemia. RECOMMENDATION: 1. Re-initiation of beta-arturo therapy, Lopressor. 2. Re-initiation of Ecotrin therapy and if surgical intervention is planned for the above-noted femoral fracture, Ecotrin therapy to be continued periprocedurally unless it is absolutely contraindicated. 3. Ideally, statin therapy initiation is recommended. The patient currently is reluctant to initiate therapy related to prior reported side effects to statin therapy administration. 4. Repeat troponin-I to assess downward trend. 5. Patient and her daughter who was contacted via telephone were advised that there are no absolute contraindications in proceeding with the above-noted orthopedic procedure if deemed necessary, although patient is at increased cardiovascular risk considering the above-noted evidence of acute coronary syndrome, no clinical evidence of decompensated congestive heart failure, and/or malignant sustained ventricular arrhythmia. Additionally, if the above-noted orthopedic procedure is planned, it should be performed in an institution with full access to an interventional cardiac catheterization laboratory. Patient preference to be transferred to [facility]. Thank you for the kind referral. NHI DELA CRUZ M.D. BHARAT/[id number]
--- NOTE | 2017-09-07 18:47 | PN ---
Progress Note, Physician History of Present Illness: doing well - Current Medication List Current Medications: Active Medications Acetaminophen (Tylenol -) 650 mg PO Q6H PRN PRN Reason: PAIN SCALE 1-5 Last Admin: 09/07/17 11:55 Dose: 650 mg Amlodipine Besylate (Norvasc -) 2.5 mg PO DAILY [facility] Aspirin (Asa -) 81 mg PO BID [facility] Clopidogrel Bisulfate (Plavix -) 75 mg PO DAILY [facility] Enoxaparin Sodium (Lovenox -) 50 mg SQ DAILY [facility] Last Admin: 09/07/17 09:07 Dose: 50 mg Sodium Chloride (Normal Saline -) 1,000 mls @ 42 mls/hr IV ASDIR [facility] Last Admin: 09/07/17 15:37 Dose: 42 mls/hr Sodium Chloride (Normal Saline -) 1,000 mls @ 75 mls/hr IV ASDIR [facility] Last Admin: 09/06/17 18:57 Dose: 75 mls/hr Metoprolol Tartrate (Lopressor -) 50 mg PO DAILY [facility] Morphine Sulfate (Morphine Sulfate) 2 mg IVPUSH Q4H PRN PRN Reason: PAIN LEVEL 4 - 6 Last Admin: 09/07/17 01:30 Dose: 2 mg - Objective Vital Signs: Vital Signs Temperature 98.5 F 09/07/17 17:00 Pulse Rate 97 H 09/07/17 17:00 Respiratory Rate 20 09/07/17 17:00 Blood Pressure 120/74 09/07/17 17:00 O2 Sat by Pulse Oximetry (%) 93 L 09/07/17 09:00 Constitutional: Yes: No Distress HENT: Yes: Atraumatic Neck: Yes: Supple Cardiovascular: Yes: Regular Rate and Rhythm Respiratory: Yes: CTA Bilaterally Gastrointestinal: Yes: Normal Bowel Sounds Extremities: Yes: WNL Edema: No Peripheral Pulses WNL: Yes Neurological: Yes: Alert, Oriented Labs: CBC, BMP 09/07/17 06:27 09/07/17 06:27 INR, PTT INR 1.09 (0.82-1.09) 09/06/17 15:01 Problem List - Problems (1) Essential hypertension Code(s): I10 - ESSENTIAL (PRIMARY) HYPERTENSION (2) Femur fracture, right Assessment/Plan: surgery consult reviewed prn pain meds Code(s): S72.91XA - UNSP FRACTURE OF RIGHT FEMUR, INIT FOR CLOS FX Qualifiers: Encounter type: initial encounter Femur location: shaft Fracture type: closed Fracture morphology: oblique Fracture alignment: nondisplaced Qualified Code(s): S72.334A - Nondisplaced oblique fracture of shaft of right femur, initial encounter for closed fracture (3) NSTEMI (non-ST elevated myocardial infarction) Assessment/Plan: will follow troponins cardiology on case tele monitoring Code(s): I21.4 - NON-ST ELEVATION (NSTEMI) MYOCARDIAL INFARCTION (4) HTN (hypertension) Code(s): I10 - ESSENTIAL (PRIMARY) HYPERTENSION
[2017-09-07] MEDS: amLODIPine BESYLATE 2.5 MG TABLET (FP) PO SCH (19:02)
[2017-09-07] MEDS: METOPROLOL TARTRATE 50 MG TABLET (FP) PO SCH (19:02)
[2017-09-07] MEDS ORDERED: ASPIRIN 81 MG CHEWABLE TABLETS PO SCH (22:00)
[2017-09-08] MEDS: ACETAMINOPHEN 325 MG TABLET (FP) PO PRN ×2 (03:32→16:53)
[2017-09-08] MEDS: SODIUM CHLORIDE 1,000 ML IV SCH (05:30)
[2017-09-08] MEDS ORDERED: ASPIRIN COATED 81 MG TABLET.EC PO SCH (10:00)
[2017-09-08] MEDS ORDERED: CLOPIDOGREL BISULFATE 75 MG TABLET (FP) PO SCH (10:00)
[2017-09-08] MEDS: ENOXAPARIN NA (PORCINE) 60 MG/0.6 ML DISP.SYRIN SQ SCH (10:05)
[2017-09-08] MEDS: METOPROLOL TARTRATE 50 MG TABLET (FP) PO SCH (10:05)
[2017-09-08] MEDS: amLODIPine BESYLATE 2.5 MG TABLET (FP) PO SCH (10:05)
[2017-09-08 12:17] LABS: HEMATOCRIT 24.6 % (32.4-45.2); HEMOGLOBIN 8.2 GM/dL (10.7-15.3); MCH 30.9 pg (25.7-33.7); MCHC 33.5 g/dl (32.0-36.0); MEAN CELL VOLUME 92.3 fl (80-96); MEAN PLT VOLUME 9.9 fl (7.5-11.1); PLATELET COUNT 170 K/MM3 (134-434); RBC 2.66 M/mm3 (3.60-5.2); RDW 15.2 % (11.6-15.6); WHITE BLOOD COUNT 7.5 K/mm3 (4.0-10.0)
--- NOTE | 2017-09-08 12:19 | PN ---
Progress Note, Physician History of Present Illness: Denies chest pain, dyspnea, palpitations, troponins have peaked. Reports right hip and thigh discomfort. - Current Medication List Current Medications: Active Medications Acetaminophen (Tylenol -) 650 mg PO Q6H PRN PRN Reason: PAIN SCALE 1-5 Last Admin: 09/08/17 03:32 Dose: 650 mg Amlodipine Besylate (Norvasc -) 2.5 mg PO DAILY [facility] Last Admin: 09/08/17 10:05 Dose: 2.5 mg Aspirin (Ecotrin -) 81 mg PO DAILY [facility] Last Admin: 09/08/17 10:05 Dose: 81 mg Enoxaparin Sodium (Lovenox -) 50 mg SQ DAILY [facility] Last Admin: 09/08/17 10:05 Dose: Not Given Sodium Chloride (Normal Saline -) 1,000 mls @ 75 mls/hr IV ASDIR [facility] Last Admin: 09/08/17 05:30 Dose: 75 mls/hr Metoprolol Tartrate (Lopressor -) 50 mg PO DAILY [facility] Last Admin: 09/08/17 10:05 Dose: 50 mg Morphine Sulfate (Morphine Sulfate) 2 mg IVPUSH Q4H PRN PRN Reason: PAIN LEVEL 4 - 6 Last Admin: 09/07/17 01:30 Dose: 2 mg - Objective Vital Signs: Vital Signs Temperature 97.6 F 09/08/17 06:00 Pulse Rate 89 09/08/17 06:00 Respiratory Rate 19 09/08/17 06:00 Blood Pressure 150/82 09/08/17 06:00 O2 Sat by Pulse Oximetry (%) 92 L 09/07/17 21:00 Constitutional: Yes: No Distress, Calm, Thin Neck: Yes: Supple Cardiovascular: Yes: Regular Rate and Rhythm Respiratory: Yes: Regular, On Nasal O2 Gastrointestinal: Yes: Normal Bowel Sounds, Soft Edema: No Labs: CBC, BMP 09/08/17 12:00 INR, PTT INR 1.09 (0.82-1.09) 09/06/17 15:01 Problem List - Problems (1) Coronary artery disease Code(s): I25.10 - ATHSCL HEART DISEASE OF [place] CORONARY ARTERY W/O ANG PCTRS Qualifiers: Coronary Disease-Associated Artery/Lesion type: [place] artery [place] vs. transplanted heart: [place] heart Associated angina: without angina Qualified Code(s): I25.10 - Atherosclerotic heart disease of [place] coronary artery without angina pectoris (2) S/P right coronary artery (RCA) stent placement Code(s): Z95.5 - PRESENCE OF CORONARY ANGIOPLASTY IMPLANT AND GRAFT (3) Hyperlipidemia Code(s): E78.5 - HYPERLIPIDEMIA, UNSPECIFIED Qualifiers: Hyperlipidemia type: pure hypercholesterolemia Qualified Code(s): E78.00 - Pure hypercholesterolemia, unspecified; E78.0 - Pure hypercholesterolemia (4) Essential hypertension Code(s): I10 - ESSENTIAL (PRIMARY) HYPERTENSION (5) Femur fracture, right Code(s): S72.91XA - UNSP FRACTURE OF RIGHT FEMUR, INIT FOR CLOS FX Qualifiers: Encounter type: initial encounter Femur location: shaft Fracture type: closed Fracture morphology: oblique Fracture alignment: nondisplaced Qualified Code(s): S72.334A - Nondisplaced oblique fracture of shaft of right femur, initial encounter for closed fracture (6) HTN (hypertension) Code(s): I10 - ESSENTIAL (PRIMARY) HYPERTENSION Qualifiers: Hypertension type: essential hypertension Qualified Code(s): I10 - Essential (primary) hypertension (7) NSTEMI (non-ST elevated myocardial infarction) Code(s): I21.4 - NON-ST ELEVATION (NSTEMI) MYOCARDIAL INFARCTION Assessment/Plan 09/07/2017 Echocardiography revealed normal systolic LV function with LVEF of 70 -75%, AV sclerosis, dense MAC, trace to mild MR Dobutamine stress echocardiography dated 04/02/2017 revealed normal augmentation of all myocardial segments, resting LVEF of 75%, peak Dobutamine infusion LVEF was 90%, there was systolic left ventricular cavity obliteration with late systolic intra-cavitary gradient of 75 mmHg (Hypertrophic cardiomyopathy of the elderly) 1. Traumatic right femur periprosthetic fracture, plan for possible surgical intervention 2. CAD post PCI/stent angina pectoris with evidence of demand ischemic injury/ non-ST segment elevation myocardial infarction 3. Diastolic LV dysfunction with class 0 NYHA classification LV failure, hypertrophic cardiomyopathy of the elderly 4. Hypertension 5. Hypercholesterolemia currently on no statin therapy 6. Chronic kidney disease 7. History of total hip arthroplasty 8. Anemia PLAN: 1. Continue Toprol XL 50 mg daily, Norvasc 2.5 qd 2. Continue ASA 81 mg daily patricio-procedurally unless it is absolutely contraindicated, Plavix has been held pre-op, to resume once post-op hemostasis has been achieved 3. Ideally statin therapy initiation is recommended but patient historically and currently is reluctant to initiate therapy related to prior reported side effects to statin therapy administration 4. Troponins have peaked 5. Patient and her daughter who was contacted via telephone were advised that there are no absolute contraindications in proceeding with the above-noted orthopedic procedure which is deemed necessary, although patient is at increased cardiovascular risk considering the above-noted evidence of acute coronary syndrome (No clinical evidence of decompensated congestive heart failure and/or malignant sustained ventricular arrhythmia), additionally if the above-noted orthopedic procedure is planned it should be performed in an institution with full access to an interventional cardiac catheterization lab, patient preference to be transferred to [facility] for treatment with Dr Rivera 6. DVT prophylaxis, analgesia as needed 7. 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 Gavin Dudley at [facility] as outpatient, will hand off her care to our colleagues at [facility].
[2017-09-08 12:32] LABS: INR 0.99 (0.82-1.09); PROTHROMBIN TIME (PATIENT) 11.2 SEC (9.98-11.88)
[2017-09-08 12:34] LABS: ACTIVATED PTT 26.6 SECONDS (26.9-34.4)
[2017-09-08 13:38] LABS: ALBUMIN 2.5 g/dl (3.4-5.0); ALK PHOS 78 U/L (45-117); ANION GAP 8 (8-16); BILIRUBIN,TOTAL 0.1 mg/dL (0.2-1.0); BLOOD UREA NITROGEN 33 mg/dL (7-18); CALCIUM 7.3 mg/dL (8.5-10.1); CHLORIDE 110 mmol/L (98-107); CO2 21 mmol/L (21-32); CREATININE 1.5 mg/dL (0.55-1.02); GLUCOSE,RANDOM 127 mg/dL (74-106); POTASSIUM 4.5 mmol/L (3.5-5.1); SGOT/AST 75 U/L (15-37); SGPT/ALT 52 U/L (12-78); SODIUM 139 mmol/L (136-145); TOT PROT 5.1 g/dl (6.4-8.2)
--- NOTE | 2017-09-08 17:29 | PN ---
Progress Note, Physician History of Present Illness: doing well - Current Medication List Current Medications: Active Medications Acetaminophen (Tylenol -) 650 mg PO Q6H PRN PRN Reason: PAIN SCALE 1-5 Last Admin: 09/08/17 16:53 Dose: 650 mg Amlodipine Besylate (Norvasc -) 2.5 mg PO DAILY [facility] Last Admin: 09/08/17 10:05 Dose: 2.5 mg Aspirin (Ecotrin -) 81 mg PO DAILY [facility] Last Admin: 09/08/17 10:05 Dose: 81 mg Enoxaparin Sodium (Lovenox -) 50 mg SQ DAILY [facility] Last Admin: 09/08/17 10:05 Dose: Not Given Sodium Chloride (Normal Saline -) 1,000 mls @ 75 mls/hr IV ASDIR [facility] Last Admin: 09/08/17 05:30 Dose: 75 mls/hr Metoprolol Succinate (Toprol Xl -) 50 mg PO DAILY [facility] Morphine Sulfate (Morphine Sulfate) 2 mg IVPUSH Q4H PRN PRN Reason: PAIN LEVEL 4 - 6 Last Admin: 09/07/17 01:30 Dose: 2 mg - Objective Vital Signs: Vital Signs Temperature 98.4 F 09/08/17 14:00 Pulse Rate 82 09/08/17 14:00 Respiratory Rate 20 09/08/17 10:00 Blood Pressure 126/93 09/08/17 14:00 O2 Sat by Pulse Oximetry (%) 97 09/08/17 09:00 Constitutional: Yes: No Distress HENT: Yes: Atraumatic Neck: Yes: Supple Cardiovascular: Yes: Regular Rate and Rhythm Respiratory: Yes: CTA Bilaterally Gastrointestinal: Yes: Normal Bowel Sounds Extremities: Yes: WNL Edema: LLE: Trace, RLE: Trace Neurological: Yes: Alert, Oriented Labs: CBC, BMP 09/08/17 12:00 09/08/17 12:00 INR, PTT INR 0.99 (0.82-1.09) 09/08/17 12:00 Problem List - Problems (1) Essential hypertension Assessment/Plan: on meds stable Code(s): I10 - ESSENTIAL (PRIMARY) HYPERTENSION (2) Femur fracture, right Assessment/Plan: surgery consult prn pain meds physical therapy request pt wants surgery to be done by his ortho Code(s): S72.91XA - UNSP FRACTURE OF RIGHT FEMUR, INIT FOR CLOS FX Qualifiers: Encounter type: initial encounter Femur location: shaft Fracture type: closed Fracture morphology: oblique Fracture alignment: nondisplaced Qualified Code(s): S72.334A - Nondisplaced oblique fracture of shaft of right femur, initial encounter for closed fracture (3) NSTEMI (non-ST elevated myocardial infarction) Assessment/Plan: troponins have peaked cardiology on case tele monitoring Code(s): I21.4 - NON-ST ELEVATION (NSTEMI) MYOCARDIAL INFARCTION (4) HTN (hypertension) Code(s): I10 - ESSENTIAL (PRIMARY) HYPERTENSION Qualifiers: Hypertension type: essential hypertension Qualified Code(s): I10 - Essential (primary) hypertension
--- NOTE | 2017-09-08 17:53 | DS ---
Physical Examination Vital Signs: Vital Signs Temperature 98.4 F 09/08/17 14:00 Pulse Rate 82 09/08/17 14:00 Respiratory Rate 20 09/08/17 10:00 Blood Pressure 126/93 09/08/17 14:00 O2 Sat by Pulse Oximetry (%) 97 09/08/17 09:00 Labs: CBC, BMP 09/08/17 12:00 09/08/17 12:00 Discharge Summary Reason For Visit: NON ST ELEVATION(NSTEMI) MYOCARDIAL INFRACTION Current Active Problems Coronary artery disease (Acute) Essential hypertension (Acute) Femur fracture, right (Acute) HTN (hypertension) (Acute) Hyperlipidemia (Acute) NSTEMI (non-ST elevated myocardial infarction) (Acute) S/P right coronary artery (RCA) stent placement (Acute) - Instructions Referrals: Shelbi Nguyen RN [Primary Care Provider] - - Home Medications Comprehensive Discharge Medication List: Ambulatory Orders Acetaminophen [Tylenol -] 500 mg PO BID 09/06/17 Amlodipine Besylate [Norvasc -] 2.5 mg PO DAILY 09/06/17 Aspirin [ASA -] 81 mg PO BID 09/06/17 Clindamycin 100 mg PO PRN PRN 09/06/17 Clobetasol Propionate [Temovate] 15 gm TP DAILY 09/06/17 Clopidogrel Bisulfate [Plavix] 75 mg PO DAILY 09/06/17 Cyanocobalamin [Vitamin B12 -] 1,000 mcg PO DAILY 09/06/17 Hydrochlorothiazide 12.5 mg PO PRN PRN 09/06/17 Meclizine HCl 12.5 mg PO PRN PRN 09/06/17 Metoprolol Tartrate 50 mg PO DAILY 09/06/17 Mupirocin Cream [Bactroban 2% Cream -] 1 applic TP DAILY 09/06/17 Nystatin Oral Suspension - [Nystatin Oral Susp 647497 Units/5 ML -] 5 ml PO DAILY 09/06/17 Ranitidine HCl [Zantac] 150 mg PO DAILY 09/06/17 Enoxaparin [Lovenox -] 50 mg SQ DAILY disp.syrin 09/08/17 dc to
[2017-09-08 18:11] VITALS: BP 153/85; PULSE 91; TEMP 97.9
== END 2017-09-08 19:46 | disposition short-term general hospital (02) | DRG 280 ==
LOC: SUPCPDRO 12:51 → JER 12:51 → JERBED 21:14 → J4W 09-07 01:10
PROVIDERS: ADMIT Internal Medicine; ATTEND Internal Medicine
DX: I21.4 Non-ST elevation (NSTEMI) myocardial infarction (principal); S72.334A Nondisplaced oblique fracture of shaft of right femur, initial encounter for closed fracture; M97.01XA Periprosthetic fracture around internal prosthetic right hip joint, initial encounter; W06.XXXA Fall from bed, initial encounter; Y93.89 Activity, other specified; Y92.032 Bedroom in apartment as the place of occurrence of the external cause; Y99.8 Other external cause status; E78.5 Hyperlipidemia, unspecified; H81.49 Vertigo of central origin, unspecified ear; R35.0 Frequency of micturition; N39.41 Urge incontinence; Z87.891 Personal history of nicotine dependence; Z96.641 Presence of right artificial hip joint; Z95.5 Presence of coronary angioplasty implant and graft; Z85.528 Personal history of other malignant neoplasm of kidney; I12.9 Hypertensive chronic kidney disease with stage 1 through stage 4 chronic kidney disease, or unspecified chronic kidney disease; N18.9 Chronic kidney disease, unspecified; I25.119 Atherosclerotic heart disease of native coronary artery with unspecified angina pectoris
CPT/HCPCS: 36415; 70450-TC; 71045-TC-FY; 73523-TC-FY; 73552-TC-RT-FY; 80053; 81003; 81015; 82465; 82550; 82553; 83718; 83721; 84478; 84484; 85025; 85027; 85610; 85730; 86850; 86900; 86901; 93005; 93010; 93306-TC; 99285-25; J7030